=== PATIENT | female | born 1995 | race African-American/Black ===

== ENCOUNTER 2024-07-18 19:14 | Emergency (ER) | payer BC ==
[~2024-07-18] VITALS: Ht 170.2 cm; Wt 95.3 kg
[2024-07-18 21:00] VITALS: BP 125/79; TEMP 99.3; O2SAT 98
[2024-07-18 21:45] LABS: APPEARANCE,URINE CLEAR (CLEAR); BILIRUBIN,URINE NEGATIVE (NEGATIVE); BLOOD, URINE TRACE-INTA Ery/uL (NEGATIVE); COLOR,URINE YELLOW (YELLOW); KETONES,URINE 3+ mg/dL (NEGATIVE); LEUKOCYTE ESTERASE ,URINE NEGATIVE (NEGATIVE); NITRITE, URINE NEGATIVE (NEGATIVE); PROTEIN,URINE TRACE mg/dl (NEGATIVE); UGLUCOSE NEGATIVE (NEGATIVE); UROBILINOGEN,URINE 0.2 EU/dL (0.2)
[2024-07-18 21:52] LABS: ADD URINE CULTURE NO; BACTERIA,URINE 1+ /HPF (None Seen)
[2024-07-18] MEDS ORDERED: AZIT500T4 PO (22:19)
[2024-07-18] MEDS ORDERED: PSEU-182 PO (22:19)
[2024-07-18] MEDS ORDERED: BENZ-13 PO (22:19)
== END 2024-07-18 23:36 | disposition home or self-care (01) ==
LOC: ER 19:16
DX: B34.9 Viral infection, unspecified (principal); M54.50 Low back pain, unspecified; R05.8 Other specified cough; R09.81 Nasal congestion; Z88.1 Allergy status to other antibiotic agents
CPT/HCPCS: 81001